=== PATIENT | female | born 1965 | race Caucasian/White ===

== ENCOUNTER → 2016-03-15 | Outpatient (CLI) | payer BC | END | disposition home or self-care (01) | LOC: MMGSC 15:09 | PROVIDERS: ATTEND Family Medicine | DX: N39.0 Urinary tract infection, site not specified (principal) | CPT/HCPCS: 87077; 87086; 87186 ==

== ENCOUNTER → 2016-03-28 | Outpatient (CLI) | payer BC ==
--- NOTE | 2016-03-28 11:07 | MM ---
Reason for exam: follow-up at short interval from prior study. Last mammogram was performed 6 months ago. Physical Findings: Nurse did not find any significant physical abnormalities on exam. MG 3D Diag Mammo W/Cad RT CC and MLO view(s) were taken of the right breast. Prior study comparison: October 01, 2015, mammogram, performed at [facility]. September 23, 2015, mammogram, performed at [facility]. September 10, 2012, mammogram, performed at [facility]. The breast tissue is heterogeneously dense. This may lower the sensitivity of mammography. There is no discrete abnormality including right MLO. No significant new findings when compared with previous films. These results were verbally communicated with the patient and result sheet given to the patient on 03/28/16. ASSESSMENT: Benign, BI-RAD 2 RECOMMENDATION: Routine screening mammogram of both breasts in 6 months. Back on schedule for September 2016.
== END | disposition home or self-care (01) ==
LOC: RADMAMWWP 10:17
PROVIDERS: ATTEND Family Medicine
DX: R92.8 Other abnormal and inconclusive findings on diagnostic imaging of breast (principal)
CPT/HCPCS: G0206; G0279

== ENCOUNTER → 2016-11-07 | Outpatient (CLI) | payer BC ==
[2016-11-07 19:45] LABS: Basophils % (A) 0 %; CH 31.3; CHCM 33.1; Eosinophils # (A) 0.2 k/uL (0-0.7); Eosinophils % (A) 4 %; HCT 41.1 % (34.0-46.0); HDW 2.34; HGB 13.2 gm/dL (11.4-16.0); Luc # (Auto) 0.07; Luc % (Auto) 1; Lymphocytes % (A) 20 %; MCH 30.4 pg (25.0-35.0); MCV 94.9 fL (80.0-100.0); Mean Platelet Volume 8.5; Monocytes # (A) 0.2 k/uL (0-1.0); Monocytes % (A) 5 %; Neutrophils # (A) 3.5 k/uL (1.3-7.7); Neutrophils % (A) 70 %; RBC 4.33 m/uL (3.80-5.40); RDW 14.3 % (11.5-15.5); WBC (Perox) 5.34
[2016-11-07 19:55] LABS: ALT 31 U/L (9-52); AST 16 U/L (14-36); Alkaline Phosphatase 55 U/L (38-126); Anion Gap 8 mmol/L; Blood Urea Nitrogen 12 mg/dL (7-17); Calcium 8.9 mg/dL (8.4-10.2); Carbon Dioxide 22 mmol/L (22-30); Chloride 110 mmol/L (98-107); Cholesterol 214 mg/dL (<200); Glucose 83 mg/dL (74-99); HDL Cholesterol 73 mg/dL (40-60); Non-African American GFR(MDRD) >60 (>60 ml/min/1.73 sqM); Potassium 4.5 mmol/L (3.5-5.1); Sodium 140 mmol/L (137-145); Total Bilirubin 0.7 mg/dL (0.2-1.3); Total Protein 6.7 g/dL (6.3-8.2)
== END ==
LOC: MMGSC 10:25
PROVIDERS: ATTEND Family Medicine
DX: Z00.00 Encounter for general adult medical examination without abnormal findings (principal)
CPT/HCPCS: 36415; 80053; 80061; 84439; 84443; 85025

== ENCOUNTER 2016-11-22 10:58 | Day surgery (SDC) | payer BC ==
[2016-11-18 15:46] VITALS: BMI 29.0
[~2016-11-22 10:58] MED LIST: LACTATED RINGERS 1,000 ML IV SCH
[2016-11-22] MEDS ORDERED: LIDOCAINE 1% 20 ML VIAL (10MG/ML) FOR IV START INTRADERMA ONE (11:10)
[2016-11-22] MEDS ORDERED: LACTATED RINGERS 1,000 ML IV ONE (11:10)
[2016-11-22] MEDS ORDERED: GLYCOPYRROLATE 0.2 MG/ML 2 ML VIAL ONE (12:15)
[2016-11-22] MEDS ORDERED: PROPOFOL 10 MG/ML 20 ML VIAL IV ONE (12:15)
[2016-11-22] MEDS ORDERED: LIDOCAINE 1% INJ 10MG/ML (20 ML MDV) ONE (12:15)
--- NOTE | 2016-11-22 12:43 | P.PCN ---
Date of Procedure: 11/22/16 Preoperative Diagnosis: Postoperative Diagnosis: Procedure(s) Performed: Procedure: Total colonoscopy. Preoperative diagnosis: Screening for neoplasia. Postoperative diagnosis: Exam within normal limits. Preparation: HalfLytely prep. Sedation: Was provided by anesthesia. Brief clinical history: The patient is a 51-year-old female who is referred for this evaluation for screening for neoplasia age being her risk factor. She has no abdominal complaints, bleeding or anemia. No family history of colon cancer. This would be her first colonoscopy. Procedure: With the patient on her left lateral decubitus position and after informed consent and adequate sedation, the perianal area was inspected and it did not show any fissures or fistulas. There were no masses felt on digital rectal examination. The Olympus CFQ 160L video colonoscope was then inserted in the rectum in the usual fashion and advanced to the cecum. The mucosa appeared healthy. No polyps or tumors were seen or any obvious diverticular disease or other pathology. I retroflexed endoscope in the rectum before the endoscope was withdrawn. The patient tolerated the procedure well. Plan: The patient was reassured. She will follow-up with you as planned and I recommended repeat exam in 10 years. Implants: Indications for Procedure: Operative Findings: Description of Procedure:
[2016-11-22 14:11] VITALS: BP 105/66; PULSE 83; RESP 16; TEMP 98.4
== END 2016-11-22 13:35 | disposition home or self-care (01) ==
LOC: ORWHC2ENDO 10:58
DX: Z12.11 Encounter for screening for malignant neoplasm of colon (principal); Z79.1 Long term (current) use of non-steroidal anti-inflammatories (NSAID); Z79.899 Other long term (current) drug therapy; Z98.51 Tubal ligation status
CPT/HCPCS: J2001; J2704; G0121

== ENCOUNTER → 2017-01-17 | Outpatient (CLI) | payer BC ==
--- NOTE | 2017-01-17 13:22 | MM ---
Reason for exam: additional evaluation requested from abnormal screening. Last mammogram was performed less than 1 month ago. History: Patient had first child at age 32. Physical Findings: Nurse Summary: A 1cm nodule in the left breast at 11 o'clock (nurse suzie). MG 3D Work Up W/Cad LT LM, spot compression MLO, CC with magnification, and LM with magnification view(s) were taken of the left breast. Prior study comparison: January 11, 2017, bilateral MG 3d screening mammo w/cad. March 28, 2016, right breast MG 3d diag mammo w/cad RT. October 01, 2015, mammogram, performed at [facility]. The breast tissue is heterogeneously dense. This may lower the sensitivity of mammography. Group of suspicious pleomorphic calcifications upper inner quadrant at a middle depth. Overlying palpable marker. There may be some associated focal asymmetry for which a ultrasound is recommended. The questioned posterior asymmetric density on the MLO view does not persist. These results were verbally communicated with the patient and result sheet given to the patient on 01/17/17. ASSESSMENT: Incomplete: need additional imaging evaluation, BI-RAD 0 RECOMMENDATION: Ultrasound of the left breast.
--- NOTE | 2017-01-18 07:49 | USB ---
Reason for exam: additional evaluation requested from abnormal screening. History: Patient had first child at age 32. US Breast Workup LT Left breast ultrasound includes all four quadrants, the retroareolar region and axilla. Finding demonstrates a 1.2 x 0.6 x 1.2cm oval, mixed lesion at 12 o'clock, primarily solid, less suspicious but should still be sampled, a 0.8 x 0.8 x 1.7cm irregular taller than wide, hypoechoic and shadowing lesion at 10 o'clock for which a biopsy is recommended (at the palpable site) while no calcifications are seen, this likely corresponds to the suspicious calcifications on the mammogram and a 0.4 x 0.3 x 0.2cm oval, too small to characterize lesion at 3 o'clock. No suspicious axillary lymph nodes seen. These results were verbally communicated with the patient and result sheet given to the patient on 01/17/17. ASSESSMENT: Highly suggestive of malignancy, BI-RAD 5 RECOMMENDATION: Surgical consultation and ultrasound core biopsy of the left breast. (2 sites) Called Dr. Christianson with mammographic findings and has scheduled an appointment for the patient for 01/31/17 at 2:[address] Chandler. Biopsy scheduled 01/26/17 at 9:00. PRELIMINARY REPORT CALLED AND FAXED TO DR. CHANDLER ON 01/18/17.
== END | disposition home or self-care (01) ==
LOC: RADMAMWWP 08:08
PROVIDERS: ATTEND Family Medicine
DX: R92.8 Other abnormal and inconclusive findings on diagnostic imaging of breast (principal)
CPT/HCPCS: 76641; G0206; G0279

== ENCOUNTER → 2017-01-26 | Day surgery (SDC) | payer BC ==
[2017-01-26 08:27] VITALS: RESP 16; BMI 27.6
--- NOTE | 2017-01-26 12:07 | USB ---
EXAMINATION TYPE: US biopsy breast add'l VAD LT, US biopsy breast VAD LT, MG diagnostic mammo LT wo CAD DATE OF EXAM: 01/26/2017 CLINICAL HISTORY: R92.8 ABNORMAL MAMMOGRAM. TECHNIQUE: 2 site ultrasound-guided core needle biopsy of the left breast. COMPARISON: Exams dating back to outside imaging dated 09/23/2015. FINDINGS: The procedure of ultrasound guided core biopsy was explained to the patient. Benefits, alternatives, and risks were discussed. An informed consent was then obtained. Site A: The patient was placed in supine positioning for imaging and for the procedure. The overlying skin was prepped and draped in usual sterile fashion. Lidocaine without epinephrine (10 cc) was used as anesthetic into the skin and lidocaine with epinephrine (3 cc) was utilized to anesthetize the subcutaneous tissue up to irregular hypoechoic highly suspicious left breast mass measuring approximately 0.8 x 0.8 x 1.7 cm at the 10:00 position. Under ultrasound guidance, a 12-gauge vacuum assisted biopsy gun device was used to obtain 8 core samples. Following this, a ribbon-shaped biopsy marker was left in the mass. A radiograph was obtained of the specimen with no definitive calcifications. Postprocedural mammogram demonstrates migration of the ribbon biopsy clip due to a postprocedural hematoma. The biopsy marker is located approximately 7 mm anteriorly, 4 mm superiorly, and 9 mm laterally to the suspicious mass and segmental calcifications. Site B: The patient was placed in supine positioning for imaging and for the procedure. The overlying skin was prepped and draped in usual sterile fashion. Lidocaine without epinephrine (10 cc) was used as anesthetic into the skin and lidocaine with epinephrine (4 cc) was utilized to anesthetize the subcutaneous tissue up to the oval primarily solid 1.2 x 0.6 x 1.2 cm mass at the 12:00 position Under ultrasound guidance, a 12-gauge vacuum assisted biopsy gun device was used to obtain 5 core samples. Following this, a coil-shaped biopsy marker was left in the mass. The patient tolerated the procedure well without any immediate complication. The patient was kept in the radiology department for short stay after the procedure and then discharged home in stable condition. IMPRESSION: Successful, two site ultrasound-guided core needle biopsy of a highly suspicious (BI-RADS 5) irregular mass at the 10:00 position and indeterminant moderately suspicious oval solid mass at the 12:00 position. Please note migration of the ribbon biopsy marker of site a as detailed above due to a postprocedural hematoma if needle localization is requested. Pathology is pending. Discordant A. BREAST, LEFT, SITE A TEN O'CLOCK, CORE BIOPSY: FIBROCYSTIC CHANGES INCLUDING FIBROSIS AND SMALL CYSTS. LIMITED SAMPLE, SEE NOTE. B. BREAST, LEFT, SITE B TWELVE O'CLOCK, CORE BIOPSY: FIBROADENOMA. BACKGROUND FIBROCYSTIC CHANGES INCLUDING FIBROSIS, CYSTS AND APOCRINE METAPLASIA. Recommendation Repeat procedure Repeat ultrasound to visualize 10 o'clock lesion. Repeat biopsy if seen. Subsequently, stereotactic biopsy left breast calcifications recommended. (10 o' clock) MTDD
[2017-01-26 12:13] VITALS: BP 116/73; PULSE 72; TEMP 97.9
== END ==
LOC: RADUSWWP 07:57
PROVIDERS: ATTEND Surgery
DX: D24.2 Benign neoplasm of left breast (principal); N60.12 Diffuse cystic mastopathy of left breast; R92.8 Other abnormal and inconclusive findings on diagnostic imaging of breast; N60.82 Other benign mammary dysplasias of left breast; N64.89 Other specified disorders of breast
CPT/HCPCS: 19084; 76098; 88305

== ENCOUNTER → 2017-03-02 | Day surgery (SDC) | payer BC ==
[2017-03-02 14:03] VITALS: BP 108/72; PULSE 70; RESP 18; TEMP 97.6; BMI 27.7
--- NOTE | 2017-03-03 09:14 | MM ---
Stereotactic Mammotome core biopsy left breast. HISTORY: Highly suspicious left breast microcalcifications. The calcification in question within the left breast were targeted by the undersigned. Procedure was performed by the undersigned. Informed consent was obtained and all of the patients questions were answered. The standard sterile technique was utilized and appropriate local anesthesia was obtained with 1% licocaine. Mammotome probe was advanced and multiple core samples were obtained and sent to pathology for interpretation. 2 Microclip markers were deployed at the site of biopsy. Post procedural mammogram demonstrates appropriate deployment of radiopaque clip marker. The patient tolerated the procedure well and left the department in stable condition. Pathology results are pending. IMPRESSION: Successful stereotactic core biopsy left breast with pathology results pending. Pathology Results: Malignant BREAST, LEFT, CORE BIOPSY: INVASIVE DUCTAL CARCINOMA AND HIGH GRADE DUCTAL CARCINOMA IN SITU (DCIS). SEE SURGICAL PATHOLOGY CANCER CASE SUMMARY AND COMMENT. Recommendation Appropriate therapy and follow up. NITESHD
== END ==
LOC: RADMAMWWP 13:13
PROVIDERS: ATTEND Surgery
DX: C50.912 Malignant neoplasm of unspecified site of left female breast (principal)
CPT/HCPCS: 88305; 88342; 88341; 19081; A4648; J2001

== ENCOUNTER → 2017-04-07 | Outpatient (CLI) | payer BC ==
--- NOTE | 2017-04-11 08:58 | BMR ---
EXAMINATION TYPE: MR breast BILAT wo/w con DATE OF EXAM: 04/07/2017 COMPARISON: Exams dating back to 01/26/2017 HISTORY: left breast palpable mass biopsy proven invasive ductal carcinoma of the left breast. TECHNIQUE: A series of fat and water weighted images in the long and short axis views of both breasts are obtained in conjunction with dynamic contrast MRI with subtraction technique. The patient was i njected with 7.5 mL intravenous Gadavist gadolinium contrast. Three-dimensional and additional post processing imaging is created on independent workstation and reviewed during official interpretation of this study. FINDINGS: The breasts are composed of heterogenous fibroglandular tissue and there is mild background parenchym al enhancement. LEFT: Susceptibility artifact is seen at the 12:00 position related to the biopsy-proven fibroadenoma, conc ordant with imaging findings. The mass is obscured by susceptibility artifact and demonstrates type I continuous enhancement. Susceptibility artifact is also seen at the 10:00 position relating to the discordant BI-RADS 5 highl y suspicious biopsied mass measuring 0.8 x 0.8 x 1.7 cm on the biopsy of 01/26/2017. There is a focal area of linear nonmass enhancement measuring 0.6 x 1.3 cm in association with this biopsy marker dem onstrating type II plateau kinetics. Susceptibility artifact is also seen adjacent (just inferior rosa roximately 2 mm) to this relating to the previously biopsied pleomorphic calcifications, biopsy prove n invasive ductal carcinoma. There is partially obscured linear nonmass enhancement measuring 1.4 x 1 .0 cm with type II plateau kinetics. At the 6:00 position on postcontrast T1 fat sat series 701 image 194 and subtraction image 194 on ser ies 702 there is a suspicious 5 mm focus of enhancement with washout kinetics. Within the lower outer quadrant of the left breast there are few subcentimeter T2 hyperintense cysts the largest measuring 5 mm. RIGHT: No suspicious mass are nonmass enhancement is seen within the right breast. ADENOPATHY: No suspicious axillary, internal mammary, or intramammary adenopathy is seen. IMPRESSION: BI-RADS 6-[id number] left breast malignancy. 1. Two areas of linear nonmass enhancement directly adjacent to each other (2 mm apart) at the 10:00 position corresponding to the discordant BI-RADS 5 highly suspicious biopsied mass and the pleomorphi c calcification representing biopsy-proven invasive ductal carcinoma. These measure 0.6 x 1.3 cm and 1.4 x 1.0 cm respectively. 2. Suspicious 5 mm focus of enhancement at the 6:00 position demonstrating type III kinetics/washout enhancement. Second look ultrasound with biopsy is recommended for this focus to determine multicentr icity. If not seen sonographically MR guided biopsy is recommended. 3. No suspicious axillary, internal mammary, or intramammary adenopathy. 4. No MR evidence of malignancy within the right breast.
== END | disposition home or self-care (01) ==
LOC: RADMRIMAIN 19:25
PROVIDERS: ATTEND Surgery
DX: C50.912 Malignant neoplasm of unspecified site of left female breast (principal)
CPT/HCPCS: 77059; 0159T; A9581

== ENCOUNTER → 2017-04-11 | Outpatient (CLI) | payer BC ==
--- NOTE | 2017-04-12 07:09 | USB ---
Reason for exam: additional evaluation requested from abnormal screening. History: Patient has history of breast cancer at age 51 and had first child at age 32. Malignant MG stereo VAD BX LT of the left breast, March 02, 2017. US discontinued breast core LT of the left breast, February 20, 2017. Benign US biopsy breast VAD LT of the left breast, January 26, 2017. Benign US biopsy breast add'l VAD LT of the left breast, January 26, 2017. Physical Findings: Nurse did not find any significant physical abnormalities on exam. US Breast LT Left breast ultrasound includes all four quadrants, the retroareolar region and axilla. Finding demonstrates a 1.4 x 0.6 x 1.1cm oval, solid lesion at 12 o'clock, known fibroadenoma and a 1.2 x 0.9 x 1.2cm irregular, solid, hypoechoic lesion at 10 o'clock, known cancer. No suspicious sonographic finding at the 6 o'clock position to correspond with the suspicious enhancing focus on MR. These results were verbally communicated with the patient and result sheet given to the patient on 04/11/17. ASSESSMENT: Known biopsy proven malignancy, BI-RAD 6 RECOMMENDATION: MRI-guided biopsy of the left breast. MR guided biopsy recommended on the 5mm enhancing focus on MR. Discussed with patient and Dr. Chandler.
== END | disposition home or self-care (01) ==
LOC: RADUSWWP 14:55
PROVIDERS: ATTEND Surgery
DX: C50.212 Malignant neoplasm of upper-inner quadrant of left female breast (principal)

== ENCOUNTER → 2017-04-27 | Day surgery (SDC) | payer BC ==
[~2017-04-27] MED LIST changes: +ALPRAZolam 0.5 MG TAB PO STA; -LACTATED RINGERS 1,000 ML IV SCH
[2017-04-27 09:00] VITALS: BP 117/71; PULSE 85; RESP 16; TEMP 98.3
--- NOTE | 2017-04-27 12:30 | MM ---
Diagnostic left mammogram HISTORY: Status post breast biopsy Digital left mammogram was performed following MRI breast biopsy. Exam correlated to prior exam dated 03/02/2017 There is a new barbell-shaped clip present at the approximate 6:00 position of the left breast compat ible with patient's breast biopsy. Prior markers are also again noted. Abnormal calcifications compat ible with patient's history of breast carcinoma also noted. IMPRESSION: Post MRI biopsy exam.
--- NOTE | 2017-04-27 13:14 | BMR ---
MR breast biopsy HISTORY: Abnormal mammogram, breast cancer, previous abnormal breast MRI Correlation to prior breast MRI dated 04/07/2017 Maximal barrier technique was utilized. Using MRI guidance, the area previously described of abnormal contrast enhancement, kinetics at the 6:00 position of the right breast was localized. Using standar d MRI guidance the skin overlying a suitable path to the abnormality was identified and subsequently prepped. Lidocaine was used for local anesthesia. Trocar was introduced with sheath and subsequently vacuum assisted core biopsy was performed, 5 cores obtained. A clip was deployed was verified and pos tprocedure digital mammogram and MRI on same date. Sheath was removed and hemostasis achieved. The pa tient remained in stable condition without immediate complication. Minimal bleeding. IMPRESSION: Successful MRI guided core breast biopsy, pathology pending. This procedure performed by the undersigned.
== END ==
LOC: RADMRIMAIN 08:38
PROVIDERS: ATTEND Surgery
DX: N60.32 Fibrosclerosis of left breast (principal); Z85.3 Personal history of malignant neoplasm of breast
CPT/HCPCS: 88305; 77065; 19085; A9581; 0159T

== ENCOUNTER → 2017-05-09 | Day surgery (SDC) | payer BC ==
[2017-05-05 12:24] VITALS: BMI 28.2
[~2017-05-09] MED LIST changes: +ALPRAZolam 0.5 MG TAB PO PRN; -ALPRAZolam 0.5 MG TAB PO STA; +DEXAMETHASONE SOD PHOSPHATE 10 MG/ML 1 ML VIAL IV ONE; +HEPARIN SODIUM,PORCINE 5,000 UNIT/ML 1 ML VIAL SQ ONE; +HYDROcodone/APAP 5-325MG 1 EACH TAB PO ONE; +HYDROmorphone (PF) 1 MG/ML ONE; +HYDROmorphone 0.5 MG/0.5 ML SYRINGE IVP ONE; +LACTATED RINGERS 1,000 ML IV ONE; +LACTATED RINGERS 1,000 ML IV SCH; +LIDOCAINE 1% 20 ML VIAL (10MG/ML) FOR IV START INTRADERMA ONE; +LIDOCAINE 1% INJ 10MG/ML (20 ML MDV) ONE; +LIDOCAINE 1% INJ 10MG/ML (20 ML MDV) SQ ONE; +LIDOCAINE 2% (PF) 20 MG/ML 10 ML AMP SQ ONE; +MIDAZOLAM 2 MG/2 ML VIAL ONE; +MORPHINE SULFATE 2 MG/ML SYRINGE IV PRN; +ONDANSETRON 4 MG/2 ML VIAL IVP ONE; +PROPOFOL 10 MG/ML 20 ML VIAL IV ONE; +Pre Op ABX Message 1 EACH MISC MISCELLANE ONE; +SODIUM BICARB 4% 5 ML VIAL (0.48 MEQ/ML) MISCELLANE ONE; +SODIUM CHLORIDE 0.9% 50 ML with ceFAZolin 2,000 MG IV ONE; +fentaNYL (PF) 50 MCG/ML 2 ML AMP IV PRN; +fentaNYL (PF) 50 MCG/ML 2 ML AMP ONE
[2017-05-09] MEDS: ONDANSETRON 4 MG/2 ML VIAL IVP PRN ×2 (12:30→19:30)
--- NOTE | 2017-05-09 12:40 | NM ---
EXAMINATION TYPE: NM sentinel node injection DATE OF EXAM: 05/09/2017 COMPARISON: Exams dating back to 01/26/2017 HISTORY: Left breast cancer with request for sentinel lymph node biopsy TECHNIQUE AND FINDINGS: The procedure of sentinel lymph node injection was explained to the patient. The benefits, alternatives, and risks were discussed. An informed consent was then obtained. Overlying skin is cleaned with sterile alcohol. Following this, 589 uCi [id number] lymphoseek was injecte d in a single dose at the 2:00 position surrounding the left nipple intradermally. The patient tolerated the procedure well without any immediate complication. The patient was kept in the radiology department for short stay after the procedure and then taken to surgery for surgical p rocedure what is presumed intraoperative gamma probe will be used for sentinel lymph node detection. IMPRESSION: Left breast radiotracer injection for sentinel node localization as above.
--- NOTE | 2017-05-09 18:46 | P.PCN ---
Date of Procedure: 05/09/17 Preoperative Diagnosis: left breast cancer Postoperative Diagnosis: same Procedure(s) Performed: Left breast sentinel node biopsy, lumpectomy, placement of Biozorb, interrogation of specimen using margin probe Anesthesia: MACHO Surgeon: Kelly Turpin Estimated Blood Loss (ml): 10 IV fluids (ml): 650 Pathology: other (sentinal node, left breast lumpectomy) Condition: stable Disposition: PACU Indications for Procedure: left breast cancer Operative Findings: radiographic areas of concern removed Description of Procedure: The patient is a 51-year-old white female who is noted to have two radiographic lesions at approximately the 10 o'clock position. One was noted on ultrasound and ultrasound-guided biopsy was felt to be discordant. The second was noted on mammogram and stereotactic biopsy revealed infiltrating ductal carcinoma. Secondary to proximety of the lesions both were localized with one needle and both to be removed at this surgery. Patient was taken to the operating room and following induction of general anesthesia the left breast was prepped and draped in a sterile fashion. The neoprobe was used to identify the area of increased radioactivity in the axilla. An incision was made over this area and into in a radioactive lymph node was identified. The 10 second count of the radioactive lymph node was 34, 344. The background count at 10 seconds was 29. The lymph node was sent for pathologic evaluation and frozen section was negative for cancer. The axilla was well irrigated. There was no evidence of any active bleeding. 3-0 vicryl deep sutures were placed. The skin was closed using a 4-0 Monocryl. The area of the breast was addressed. An incision was made near the area of the needle. Wide excision was performed around the needle. Radiograph of the specimen revealed that both clips and area of calcification were in the specimen. The specimen was sent down for evaluation after it been painted for orientation. Additionally it was interrogated using the margin probe. Margin probe interrogation revealed that the inferior, superior, anterior and deep margins were positive. Therefore additional tissue was taken from the superior , inferior, deep and anterior breast. The posterior dissection was carried down to the pectoralis major muscle. The anterior dissection included resection of skin. Specimens were painted to identify the margins. Additionally on radiograph of the specimen the calcifications appeared to be close to the superior margin and additional superior margin was obtained. After we were assured that hemostasis was attained the deep tissues were closed using 3-0 Vicryl suture. A Biozorb sizer was utilized to determine what size biozorb should be placed in the cavity. A 3 x 4 was chosen and this was secured using a 3-0 Vicryl suture. The deep tissues were reapproximated using 3 -0 Vicryl suture. The skin was reapproximated using a 4-0 Monocryl. All instrument and sponge counts were correct at the end of the case. The patient tolerated the procedure in stable condition.
--- NOTE | 2017-05-09 18:48 | P.DS ---
Providers Attending physician: Kelly Turpin Primary care physician: Nemo Christianson Plan - Discharge Summary New Discharge Prescriptions: No Action Acetaminophen [Tylenol] 650 mg PO Q4-6H PRN PRN Reason: Pain Discharge Medication List Acetaminophen [Tylenol] 650 mg PO Q4-6H PRN 04/27/17 [History] Follow up Appointment(s)/Referral(s): Kelly Turpin MD [STAFF PHYSICIAN] - 1 Week Activity/Diet/Wound Care/Special Instructions: Patient may shower after [address] or if taking narcotic pain medication Discharge Disposition: HOME SELF-CARE
[2017-05-09 19:10] VITALS: RESP 16; TEMP 97.7
[2017-05-09 20:12] VITALS: BP 116/64; PULSE 89
--- NOTE | 2017-05-10 07:46 | MM ---
EXAMINATION TYPE: MG pre op needle loc LT, MG surgical specimen LT, MG surgical specimen LT DATE OF EXAM: 05/09/2017 COMPARISON: Exams dating back to 01/09/2017 CLINICAL HISTORY: Left breast invasive ductal carcinoma and high-grade DCIS TECHNIQUE: Needle localization with wire placement and surgical excision of pleomorphic calcifications biopsy-proven invasive ductal carcinoma and DCIS in the left breast. FINDINGS: The procedure of needle localization with wire placement and than surgical excision was explained to the patient. Benefits, alternatives, and risks were discussed. An informed consent was then obtained. Preprocedural timeout was performed. The shortest pathway for procedure was chosen. Shortest pathway was medial lateral approach. The overlying skin was prepped and draped in usual sterile fashion. 10 cc of lidocaine buffered with bicarbonate was used as anesthetic into the skin and subcutaneous tissue up to the level of area of concern. A 5 cm needle was used. It was placed via a lateral medial approach under mammographic guidance. Subsequent 90 degrees mammogram show the needle to be in satisfactory position relative to the targeted area with the needle just posterior to the calcifications and biopsy marker. At this point, wire was placed and the needle was withdrawn. The wire was fixed to patient's skin. Images were marked for surgeon. The patient tolerated the procedure well without any immediate complication. The patient was kept in the radiology department for short stay after the procedure and then taken to surgery for surgical excision. Targeted calcifications and wire are identified in specimen mammogram. The patient was kept in hospital for short stay after the procedure and then discharged home in stable condition. IMPRESSION: Successful, uncomplicated needle localization with wire placement and surgical excision of suspicious group of calcifications representing the biopsy-proven left invasive ductal carcinoma and high-grade DCIS, full pathology results to follow. Pathology Results: Malignant A. LEFT BREAST SENTINEL LYMPH NODE, EXCISION: LYMPH NODE, NEGATIVE FOR METASTATIC ADENOCARCINOMA. LEILA AND CK7 IMMUNOPEROXIDASE STAINS: NEGATIVE FOR METASTATIC ADENOCARCINOMA. CONTROLS ARE APPROPRIATE FOR IMMUNOSTAIN EVALUATION. B. LEFT BREAST, LUMPECTOMY TISSUE: DUCTAL ADENOCARCINOMA, IGNACIO GRADE 1. TUMOR EXTENDS TO WITHIN 1 MM OF THE BLACK INKED SUPERIOR MARGIN. C. LEFT BREAST, EXTENDED SUPERIOR MARGIN, EXCISION: NEGATIVE FOR INVOLVEMENT BY ADENOCARCINOMA. PROLIFERATIVE BREAST LESIONS WITHOUT ATYPIA INCLUDING FIBROADENOMA, SCLEROSING ADENOSIS AND DUCT CYSTIC CHANGES WITH STROMAL FIBROSIS. D. LEFT BREAST, EXTENDED INFERIOR MARGIN, EXCISION: NEGATIVE FOR INVOLVEMENT BY ADENOCARCINOMA. E. LEFT BREAST, EXTENDED DEEP MARGIN, EXCISION: NEGATIVE FOR INVOLVEMENT BY ADENOCARCINOMA. F. LEFT BREAST, EXTENDED ANTERIOR MARGIN WITH SKIN, EXCISION: NEGATIVE FOR INVOLVEMENT BY ADENOCARCINOMA OR DERMAL LYMPH VASCULAR SPACE INVASION. Recommendation Surgical consult of the left breast. NITESHD
== END | disposition home or self-care (01) ==
LOC: OR 10:31
PROVIDERS: ATTEND Surgery
DX: D24.2 Benign neoplasm of left breast (principal); N60.22 Fibroadenosis of left breast; N60.32 Fibrosclerosis of left breast; N60.12 Diffuse cystic mastopathy of left breast; Z79.899 Other long term (current) drug therapy
CPT/HCPCS: 81025; 88342; 88331; 88307; 88341; 76098; 19281; 38792; A4648; A9520; J2250; J1644; J1100; J2001 ×2; J2405; J3010; J1170 ×2; J0690; J2704

== ENCOUNTER → 2017-09-28 | Outpatient (CLI) | payer BC ==
[2017-09-28 09:58] VITALS: BP 125/60; PULSE 71; BMI 29.9
--- NOTE | 2017-09-28 10:29 | P.GSHP ---
History of Present Illness H&P Date: 09/28/17 Patient is a 52 year old white female status post lumpectomy and SNB on . D2iYtIl lesion, Grade 1, ER, positive, GA, positive, HER-2/doris negative Oncotype test was done and told low score. The patient is on tamoxifen. She did not have any chemotherapy. She did have radiation therapy. The patient has no complaints at this time. past surgical history: 1. left breast lumpectomy and sentinel node biopsy to 04-19-17 2. 2 3. Tubal ligation 4. Pyloric stenosis as an 5. Appendectomy Past medical history: None - Constitutional Comment: Night sweats related to tamoxifen Constitutional: Reports sweats - EENT Eyes: denies blurred vision (new glasses), denies pain Ears: deny: decreased hearing, tinnitus Ears, nose, mouth and throat: Denies headache, Denies sore throat - Breasts Breasts: bilateral: as per HPI - Cardiovascular Cardiovascular: Denies chest pain, Denies shortness of breath - Respiratory Respiratory: Denies cough, Denies 7 - Gastrointestinal Gastrointestinal: Denies abdominal pain, Denies diarrhea, Denies nausea, Denies vomiting - Genitourinary (Female) Genitourinary: Denies dysuria, Denies hematuria - Menstruation Comment: still having periods on tamoxifen - Musculoskeletal Comment: no arthritis Musculoskeletal: Denies myalgias - Integumentary Integumentary: Denies pruritus, Denies rash - Neurological Neurological: Denies numbness, Denies weakness - Psychiatric Psychiatric: Denies anxiety, Denies depression - Endocrine Endocrine: Denies fatigue, Denies weight change - Hematologic/Lymphatic Comment: none - Allergic/Immunologic Allergic/Immunologic: Reports seasonal allergies Past Medical History Past Medical History: Cancer Additional Past Medical History / Comment(s): left breast CA Dx Mar 2017 History of Any Multi-Drug Resistant Organisms: None Reported Past Surgical History: Appendectomy, Section, Tubal Ligation Additional Past Surgical History / Comment(s): left breast bx,C SECTION X2 , EYE SURGERY, PYLORIC STENOSIS SURGERY Past Anesthesia/Blood Transfusion Reactions: No Reported Reaction Additional Past Anesthesia/Blood Transfusion Reaction / Comment(s): no hx blood transfusions Past Psychological History: No Psychological Hx Reported Smoking Status: Never smoker Past Alcohol Use History: Occasional Past Drug Use History: None Reported - Past Family History Mother History Unknown: Yes Family Medical History: No Reported History Additional Family Medical History / Comment(s): no cancer in immediate family Medications and Allergies Home Medications Medication Instructions Recorded Confirmed Type Acetaminophen [Tylenol] 650 mg PO Q4-6H PRN 04/27/17 09/28/17 History Tamoxifen Citrate 20 tab PO DAILY 09/28/17 09/28/17 History Vitamin E 1,000 unit PO DAILY 09/28/17 09/28/17 History Allergies Allergy/AdvReac Type Severity Reaction Status Date / Time No Known Allergies Allergy Verified 05/05/17 12:18 Surgical - Exam Vital Signs Pulse BP Pulse Ox 71 125/60 98 09/28/17 09:53 09/28/17 09:53 09/28/17 09:53 - General well developed, well nourished, no distress - Eyes normal ocular movement, no icteric - ENT no hearing loss, no congestion - Neck no masses, trachea midline - Respiratory normal respiratory effort, clear to auscultation - Cardiovascular Rhythm: regular Heart Sounds: normal: S1, S2 - Abdomen Abdomen: soft, non tender, no guarding, no rigid, no rebound - Integumentary Mild skin changes related to prior radiation therapy of the left breast - Neurologic no disoriented, no combative - Musculoskeletal normal gait, normal posture - Psychiatric oriented to time, oriented to person, oriented to place, speech is normal, memory intact Breast examination: Right breast: Multiple positional exam no dominant masses or nodules of concern Right axilla: Mild shotty adenopathy non-concerning Left breast: Multiple positional exam well-healed scar from prior lumpectomy postop changes no masses of concern Left axilla: Well-healed scar no adenopathy of concern Bilateral upper extremity circumference 31 cm no evidence of lymphedema Assessment and Plan Assessment: Impression/plan: 1. Patient is status post lumpectomy radiation therapy for a T1 cN0 M0 left breast cancer this was ER/GA positive HER-2/doris negative and low Oncotype score grade 1 2. No evidence of recurrent disease Plan: Repeat physician exam in 4 months time patient will call if she has any questions or concerns sooner Cc: Dr. Swift
== END ==
LOC: WWCWWP 09:48
PROVIDERS: ATTEND Surgery
DX: Z53.9 Procedure and treatment not carried out, unspecified reason (principal)

== ENCOUNTER → 2018-01-05 | Outpatient (CLI) | payer BC ==
[2018-01-05 19:39] LABS: Albumin 4.1 g/dL (3.80-4.90); Albumin/Globulin Ratio 1.78 (1.20-2.10); Anion Gap 9.9 mmol/L (4.00-12.00); Calcium 8.9 mg/dL (8.7-10.3); Carbon Dioxide 22.1 mmol/L (21.6-31.8); Globulin 2.3 g/dL (2.1-3.7); LDL Cholesterol,Calculated 98.6 mg/dL (0.0-131.0); Potassium 4.4 mmol/L (3.5-5.5); Total Bilirubin 0.8 mg/dL (0.2-1.2); Total Protein 6.4 g/dL (6.2-8.2); VLDL Calculation 19.4 mg/dL (5.00-40.00)
== END ==
LOC: LABWHC1 08:55
PROVIDERS: ATTEND Family Medicine
DX: Z00.00 Encounter for general adult medical examination without abnormal findings (principal)
CPT/HCPCS: 36415; 80053; 80061

== ENCOUNTER → 2018-01-25 | Outpatient (CLI) | payer BC ==
[2018-01-25 15:51] VITALS: BP 128/78; PULSE 91; RESP 18; TEMP 98.2; BMI 29.8
--- NOTE | 2018-01-25 15:59 | P.PN ---
Subjective Progress Note Date: 01/25/18 Principal diagnosis: Anali is a 52-year-old white female status post lumpectomy and sentinel node biopsy and [id number]. A T1 cN0 M0 lesion, grade 1, ER positive, [place] positive, HER -2/doris negative, lesion was resected. Oncotype was done in she was told this had a low score. She is on tamoxifen. She did have radiation therapy. She did not have chemotherapy. She has no complaints at this time. Patient with no new lumps in her breast or concerns. Yareli had a bilateral mammogram performed [id number]. This is shows only postsurgical changes in the left breast. No lesions of concern noted in the right breast. The plan is bilateral mammogram in 1 year. Past surgical history: 1. Left breast lumpectomy sentinel node biopsy 2. 2 3. Tubal ligation 4. Pyloric stenosis 5. Appendectomy Past medical history:none Objective - Constitutional General appearance: Present: average body habitus - EENT Eyes: Present: EOMI ENT: Present: hearing grossly normal - Neck Neck: Present: normal ROM - Respiratory Respiratory: bilateral: CTA - Cardiovascular Rhythm: regular Heart sounds: normal: S1, S2 - Gastrointestinal General gastrointestinal: Present: soft - Integumentary Integumentary Comment(s): Breast examination: Right breast: Multi-positional exam no dominant masses or nodules of concern Right axilla: No adenopathy of concern Left breast: Postoperative changes noted dominant masses or nodules of concern, area of BioSorb remains palpable Left axilla: No adenopathy of concern - Musculoskeletal Musculoskeletal: Present: gait normal - Psychiatric Psychiatric: Present: A&O x's 3, appropriate affect, intact judgment & insight Assessment and Plan Assessment: Impression: 1. Patient status post left breast lumpectomy and sentinel node biopsy April 2017, patient does not have any evidence of recurrent cancer at this time 2. Fibrocystic breast changes in the right breast Plan: 1. Repeat bilateral mammogram in 1 year 2. Follow-up clinical breast exam in 4 months CC:
== END ==
LOC: WWCWWP 15:11
PROVIDERS: ATTEND Surgery
DX: Z53.9 Procedure and treatment not carried out, unspecified reason (principal)

== ENCOUNTER → 2018-06-01 | Outpatient (CLI) | payer BC ==
[2018-06-01 15:31] VITALS: BP 144/63; PULSE 90; RESP 16; TEMP 97.4; BMI 29.8
--- NOTE | 2018-06-01 15:56 | P.PN ---
Subjective Progress Note Date: 06/01/18 Principal diagnosis: Stage IA, pT1 cN0 M0 ER/LA positive HER-2/doris negative grade 1 Anali is a 52-year-old white female who is status post left breast lumpectomy with sentinel node biopsy and [id number]. 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 This was a grade 1. Margins were negative. One sentinel node was sampled which was negative. On to receive total breast radiation followed by a boost between 06/27/2017 and 07/24/2017. She tolerated the treatment with only mild dermatitis along the axillary inframammary fold. Anali had a bilateral mammogram performed on [id number]. This showed only postsurgical changes in the left breast. The patient is presently on tamoxifen. She has no complaints. The patient has noted a change in the skin of the left breast over the past 6 months. This will be evaluated today. Objective - Vital Signs Vital signs: Vital Signs Temp 97.4 F L 06/01/18 15:27 Pulse 90 06/01/18 15:27 Resp 16 06/01/18 15:27 BP 144/63 06/01/18 15:27 Pulse Ox 98 06/01/18 15:27 Intake & Output 05/31/18 06/01/18 06/01/18 18:59 06:59 18:59 Weight 83.915 kg - Exam BMI 29.9 - Constitutional General appearance: Present: average body habitus - EENT Eyes: Present: EOMI ENT: Present: hearing grossly normal - Neck Neck: Present: normal ROM - Respiratory Respiratory: bilateral: CTA - Cardiovascular Rhythm: regular Heart sounds: normal: S1, S2 - Gastrointestinal General gastrointestinal: Present: soft - Integumentary Integumentary: Present: normal turgor - Musculoskeletal Musculoskeletal: Present: gait normal - Psychiatric Psychiatric: Present: A&O x's 3, appropriate affect, intact judgment & insight - Additional findings Additional findings: Breast examination: Right breast: Multi-positional exam fibrocystic changes no dominant masses or nodules of concern Right axilla: No adenopathy of concern Left breast: Multi-positional exam no dominant masses or nodules of concern Well-healed scar from prior lumpectomy Radiation skin changes noted but not worrisome Left axilla: No adenopathy of concern Assessment and Plan Assessment: Impression: 1. Patient status post left breast lumpectomy patient status post left breast radiation therapy patient presently on tamoxifen 2. No evidence of any recurrent cancer Plan: 1. Repeat physician exam here in 4 months time 2. Continue follow-up with medical and radiation oncology 3. Repeat bilateral mammogram in January 2019 Cc: Dr. Swift
== END ==
LOC: WWCWWP 15:20
PROVIDERS: ATTEND Surgery
DX: Z53.9 Procedure and treatment not carried out, unspecified reason (principal)

== ENCOUNTER → 2018-11-08 | Outpatient (CLI) | payer BC ==
[2018-11-08 14:04] VITALS: BP 110/67; PULSE 82; RESP 18; TEMP 98.3; BMI 29.9
--- NOTE | 2018-11-08 14:21 | P.PN ---
Subjective Progress Note Date: 11/08/18 Stage IA, pT1 cN0 M0 ER/OR positive HER-2/doris negative grade 1 Anali is a 52-year-old white female who is status post left breast lumpectomy with sentinel [place] biopsy [place] [id number]. 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 This was a grade 1. Margins were negative. One sentinel node was sampled which was negative. She received total breast radiation followed by a boost between 06/27/2017 and 07/24/2017. She tolerated the treatment with only mild dermatitis along the axillary inframammary fold. Anali had a bilateral mammogram performed on [id number]. This showed only post surgical changes in the left breast. The patient is presently on tamoxifen. She did not have chemotherapy. She has no complaints. Patient has no concerns at this time. Family History: no cancer other than patient Hormonal history: menarche: 12 , miscarrage: 1, breast fed: yes, first born at 33 menopause: Last period September 01 BCP: 5 years hormones: none Surgical history: 1. Left breast lumpectomy with sentinel node biopsy 2. Appendectomy 3. Stenosis 4. Injury to left eye 5. C-sections times two Medical history: none Social History: smoke: none alcohol: occasional drugs: none Review of systems: HEENT: His glasses Lungs: Negative Heart: Negative GI: Negative : Negative Musculoskeletal: Negative Neurologic: Negative Hematologic: Negative Skin: Negative ALLERGIES: Seasonal ALLERGIES Objective - Vital Signs Vital signs: Vital Signs Temp 98.3 F 11/08/18 14:01 Pulse 82 11/08/18 14:01 Resp 18 11/08/18 14:01 BP 110/67 11/08/18 14:01 Pulse Ox 97 11/08/18 14:01 Intake & Output 11/07/18 11/08/18 11/08/18 18:59 06:59 18:59 Weight 81.647 kg - Exam BMI 30 - Constitutional General appearance: Present: average body habitus - EENT Eyes: Present: EOMI ENT: Present: hearing grossly normal - Neck Neck: Present: normal ROM - Respiratory Respiratory: bilateral: CTA - Cardiovascular Rhythm: regular Heart sounds: normal: S1, S2 - Gastrointestinal General gastrointestinal: Present: soft - Integumentary Integumentary: Present: normal turgor - Musculoskeletal Musculoskeletal: Present: gait normal - Psychiatric Psychiatric: Present: A&O x's 3, appropriate affect, intact judgment & insight - Additional findings Additional findings: breast exam: Right breast: Multiple positional exam, cystic changes, no dominant masses or nodules of concern Right axilla: No adenopathy of concern Left breasts: Well-healed scar from prior lumpectomy, changes at the surgical site no discrete dominant masses or nodules of concern no evidence of recurrence Left axilla: No adenopathy of concern Assessment and Plan Assessment: Impression: 1. Status post left breast lumpectomy and sentinel node biopsy with postop changes no evidence of recurrent cancer 2. Patient on tamoxifen 3. Patient stopped. At this point in time. No complaints related to the tamoxifen otherwise 4. Asymmetry of the breast related to prior lumpectomy at this time patient is not interested in a contralateral breast symmetry procedure Plan: 1. Repeat bilateral mammogram in January with physician exam at that time 2. Medical management of any medical conditions CC: Dr. Swift
== END | disposition home or self-care (01) ==
LOC: WWCWWP 13:54
PROVIDERS: ATTEND Surgery
DX: Z53.9 Procedure and treatment not carried out, unspecified reason (principal)

== ENCOUNTER → 2019-01-28 | Outpatient (CLI) | payer BC ==
--- NOTE | 2019-01-29 08:45 | MM ---
Reason for exam: additional evaluation requested from prior study. Last mammogram was performed 1 year ago. History: Patient has history of breast cancer at age 51 and had first child at age 32. Radiation therapy, July 2017. Malignant MG pre op needle loc LT of the left breast, May 09, 2017. Lumpectomy of the left breast, May 09, 2017. Benign MR breast biopsy w/vad LEFT of the left breast, April 27, 2017. Malignant MG stereo VAD BX LT of the left breast, March 02, 2017. US discontinued breast core LT of the left breast, February 20, 2017. Benign US biopsy breast VAD LT of the left breast, January 26, 2017. Benign US biopsy breast add'l VAD LT of the left breast, January 26, 2017. Taking tamoxifen for 1 year. Physical Findings: Nurse did not find any significant physical abnormalities on exam. MG 3D Diag Mammo W/Cad ROB Bilateral CC and MLO view(s) were taken. Prior study comparison: January 22, 2018, bilateral MG 3d diag mammo w/cad ROB. April 27, 2017, left breast MG diagnostic mammo LT wo CAD. The breast tissue is heterogeneously dense. This may lower the sensitivity of mammography. Biozorb device in place on the left with post surgical and post therapy changes. 6 month follow up can assess for any evolving post therapy changes. No significant new findings when compared with previous films. These results were verbally communicated with the patient and result sheet given to the patient on 01/28/19. ASSESSMENT: Probably benign, BI-RAD 3 RECOMMENDATION: Follow-up diagnostic mammogram of the left breast in 6 months.
== END | disposition home or self-care (01) ==
LOC: RADMAMWWP 15:06
PROVIDERS: ATTEND Surgery
DX: Z08 Encounter for follow-up examination after completed treatment for malignant neoplasm (principal); Z85.3 Personal history of malignant neoplasm of breast
CPT/HCPCS: 77062; 77066

== ENCOUNTER → 2019-02-01 | Outpatient (CLI) | payer BC ==
[2019-02-01 15:24] VITALS: BMI 28.2
--- NOTE | 2019-02-01 15:55 | P.PN ---
Subjective Progress Note Date: 02/01/19 Principal diagnosis: Stage 1A left breast cancer, surveillance Stage IA, pT1 cN0 M0 ER/MI positive HER-2/doris negative grade 1 Anali is a 52-year-old white female who is status post left breast lumpectomy with sentinel node biopsy on . 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 This was a grade 1. Margins were negative. One sentinel node was sampled which was negative. She received total breast radiation followed by a boost between 06/27/2017 and 07/24/2017. She tolerated the treatment with only mild dermatitis along the axillary inframammary fold. Anali had a bilateral mammogram performed on 01-28-19. The breast tissue was noted to be heterogeneously dense. BioSorb device was in place on the left with postsurgical and post-therapy changes. 6 month follow-up recommended to assess for evolving posttherapy changes. This was felt to be probably benign BIRADS 3. Patient does not feel any changes for which she is concern in either breast. The patient is presently on tamoxifen. She did not have chemotherapy. She has no complaints. Patient has no concerns at this time. Family History: no cancer other than patient Hormonal history: menarche: 12 , miscarrage: 1, breast fed: yes, first born at 33 menopause: Last period September 01 BCP: 5 years hormones: none Surgical history: 1. Left breast lumpectomy with sentinel node biopsy 2. Appendectomy 3. pyloric stenosis 4. Injury to left eye 5. C-sections times two Medical history: none Social History: smoke: none alcohol: occasional drugs: none Review of systems: HEENT: wears glasses Lungs: Negative Heart: Negative GI: Negative : Negative Musculoskeletal: Negative Neurologic: Negative Hematologic: Negative Skin: Negative ALLERGIES: Seasonal ALLERGIES Objective - Vital Signs Vital signs: Intake & Output 01/31/19 02/01/19 02/01/19 18:59 06:59 18:59 Weight 79.379 kg - Exam BMI 28.2 - Constitutional General appearance: Present: average body habitus - EENT Eyes: Present: EOMI ENT: Present: hearing grossly normal - Neck Neck: Present: normal ROM - Respiratory Respiratory: bilateral: CTA - Cardiovascular Rhythm: regular Heart sounds: normal: S1, S2 - Gastrointestinal General gastrointestinal: Present: soft - Integumentary Integumentary: Present: normal turgor - Musculoskeletal Musculoskeletal: Present: gait normal - Psychiatric Psychiatric: Present: A&O x's 3, appropriate affect, intact judgment & insight - Additional findings Additional findings: breast exam: right breast: Positional exam fibrocystic changes, no dominant masses or nodules of concern Right axilla: No adenopathy of concern Left breast: Left breast is smaller than the right secondary to lumpectomy and radiation treatment, there are postradiation skin changes noted, well-healed scar from prior surgery, multiple positional exam no dominant masses or nodules of concern, however the BioSorb remains palpable in the upper 12 to 11 o'clock position. Left axilla: No adenopathy of concern Assessment and Plan Assessment: Impression: 1. Patient status post left breast lumpectomy, radiation therapy for stage IA left breast cancer Apr, 2017 2. Patient is on tamoxifen 3. Patient's recent radiographic recommends repeat left breast mammogram in 6 months Plan: 1. Patient is to call if she notices anything of concern 2. Repeat left breast mammogram and physician exam in 6 months 3. Continue tamoxifen 4. Continue to follow up with radiation and medical oncology Discussion of mammogram findings held with the patient. She will have a repeat in 6 months. No evidence of recurrent cancer on x ray or exam at this time. Encounter: 20 minutes, > 50% planning, discussion
== END ==
LOC: WWCWWP 14:26
PROVIDERS: ATTEND Surgery
DX: Z53.9 Procedure and treatment not carried out, unspecified reason (principal)

== ENCOUNTER → 2019-08-23 | Outpatient (CLI) | payer BC ==
--- NOTE | 2019-08-27 10:16 | MM ---
Reason for exam: follow-up at short interval from prior study. Last mammogram was performed 7 months ago. History: Patient has history of breast cancer at age 51 and had first child at age 32. Radiation therapy, July 2017. Malignant MG pre op needle loc LT of the left breast, May 09, 2017. Lumpectomy of the left breast, May 09, 2017. Benign MR breast biopsy w/vad LEFT of the left breast, April 27, 2017. Malignant MG stereo VAD BX LT of the left breast, March 02, 2017. US discontinued breast core LT of the left breast, February 20, 2017. Benign US biopsy breast VAD LT of the left breast, January 26, 2017. Benign US biopsy breast add'l VAD LT of the left breast, January 26, 2017. Taking tamoxifen for 1 year. Physical Findings: Nurse did not find any significant physical abnormalities on exam. MG 3D Diag Mammo W/Cad LT CC and MLO view(s) were taken of the left breast. Prior study comparison: January 28, 2019, bilateral MG 3d diag mammo w/cad ROB. January 22, 2018, bilateral MG 3d diag mammo w/cad ROB. The breast tissue is heterogeneously dense. This may lower the sensitivity of mammography. Previous mammotome biopsy in the left breast. Post surgical and post therapy changes left breast with biozorb device and distortion from scar. No new calcifications. Continued short follow up recommended. These results were verbally communicated with the patient and result sheet given to the patient on 08/23/19. ASSESSMENT: Probably benign, BI-RAD 3 RECOMMENDATION: Follow-up diagnostic mammogram of both breasts in 5 months. (right annual follow up, left continued post therapy follow up)
== END | disposition home or self-care (01) ==
LOC: RADMAMWWP 14:39
PROVIDERS: ATTEND Surgery
DX: R92.8 Other abnormal and inconclusive findings on diagnostic imaging of breast (principal)
CPT/HCPCS: 77061; 77065

== ENCOUNTER → 2019-08-29 | Outpatient (CLI) | payer BC ==
[2019-08-29 13:35] VITALS: BP 120/71; PULSE 99; RESP 18; TEMP 98.7
--- NOTE | 2019-08-29 14:09 | P.PN ---
Subjective Progress Note Date: 08/29/19 Principal diagnosis: stage 1A left breast cancer surveillance Stage IA, pT1 cN0 M0 ER/[place] positive HER-2/doris negative grade 1 Anali is a 52-year-old white female who is status post left breast lumpectomy with sentinel node biopsy on . 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 This was a grade 1. Margins were negative. One sentinel node was sampled which was negative. She received total breast radiation followed by a boost between 06/27/2017 and 07/24/2017. She tolerated the treatment with only mild dermatitis along the axillary inframammary fold. Anali had a bilateral mammogram performed on 01-28-19. The breast tissue was noted to be heterogeneously dense. BioSorb device was in place on the left with postsurgical and post-therapy changes. 6 month follow-up recommended to assess for evolving posttherapy changes. This was felt to be probably benign BIRADS 3. She had a repeat [place] breast [place] [id number]. This was felt to be probably benign BIRADS 3 and follow- up diagnostic mammogram of both breasts in 5 months was recommended, this was annular further right breast. Patient does not feel any changes for which she is concern in either breast. She states the Biozorb seems to be decreasing in size. The patient is presently on tamoxifen. She did not have chemotherapy. She has no complaints. Patient has no concerns at this time. Family History: no cancer other than patient Hormonal history: menarche: 12 , miscarrage: 1, breast fed: yes, first born at 33 menopause: Last period September 01 BCP: 5 years hormones: none Surgical history: 1. Left breast lumpectomy with sentinel node biopsy 2. Appendectomy 3. pyloric stenosis 4. Injury to left eye 5. C-sections times two Medical history: none Social History: smoke: none alcohol: occasional drugs: none Review of systems: HEENT: wears glasses Lungs: Negative Heart: Negative GI: Negative : Negative Musculoskeletal: Negative Neurologic: Negative Hematologic: Negative Skin: Negative ALLERGIES: Seasonal ALLERGIES Objective - Vital Signs Vital signs: Vital Signs Temp 98.7 F 08/29/19 13:31 Pulse 99 08/29/19 13:31 Resp 18 08/29/19 13:31 BP 120/71 08/29/19 13:31 Pulse Ox 97 08/29/19 13:31 Intake & Output 08/28/19 08/29/19 08/29/19 18:59 06:59 18:59 Weight 81.647 kg - Constitutional General appearance: Present: average body habitus - EENT Eyes: Present: EOMI ENT: Present: hearing grossly normal - Neck Neck: Present: normal ROM - Respiratory Respiratory: bilateral: CTA - Cardiovascular Rhythm: regular Heart sounds: normal: S1, S2 - Gastrointestinal General gastrointestinal: Present: normal bowel sounds, soft - Integumentary Integumentary: Present: normal turgor - Musculoskeletal Musculoskeletal: Present: gait normal - Psychiatric Psychiatric: Present: A&O x's 3, appropriate affect, intact judgment & insight - Additional findings Additional findings: breast exam: BRA 36C inspection: ptosis grade 2/3 right breast, left breast grade 1 Palpation: Right breast: Multi-positional exam no dominant masses or nodules of concern right breast is larger than left breast Right axilla: No adenopathy of concern Left breast: Multi-positional exam no dominant masses or nodules of concern, well-healed scar from prior surgery Left axilla: No adenopathy of concern Assessment and Plan Assessment: Impression: 1. No evidence of recurrent cancer left breast 2. Fibrocystic breast changes 3. Asymmetry of the breast 4. I have contacted Dr. Ramsey's office and they're going to renew her tamoxifen prescription Plan: 1. Repeat bilateral mammogram in January 2020 back on schedule, physician appointment at that time 2. Patient to call sooner if any questions or concerns 3. Patient will consider if she would like to have a symmetry procedure done on the right breast CC: DR. Christianson We have discussed right breast reduction mastopexy. The patient is going to think about it at this time. encounter 20 minutes, > 50% of time in planning and counselling
== END | disposition home or self-care (01) ==
LOC: WWCWWP 13:10
PROVIDERS: ATTEND Surgery
DX: Z53.9 Procedure and treatment not carried out, unspecified reason (principal)

== ENCOUNTER → 2020-01-24 | Outpatient (CLI) | payer BC ==
--- NOTE | 2020-01-24 14:42 | MM ---
Reason for exam: additional evaluation requested from prior study. Last mammogram was performed 5 months ago. History: Patient has history of breast cancer at age 51 and had first child at age 32. Radiation therapy, July 2017. Malignant MG pre op needle loc LT of the left breast, May 09, 2017. Lumpectomy of the left breast, May 09, 2017. Benign MR breast biopsy w/vad LEFT of the left breast, April 27, 2017. Malignant MG stereo VAD BX LT of the left breast, March 02, 2017. US discontinued breast core LT of the left breast, February 20, 2017. Benign US biopsy breast VAD LT of the left breast, January 26, 2017. Benign US biopsy breast add'l VAD LT of the left breast, January 26, 2017. Taking tamoxifen for 1 year. Physical Findings: Nurse did not find any significant physical abnormalities on exam. MG 3D Diag Mammo W/Cad ROB Bilateral CC and MLO view(s) were taken. Prior study comparison: August 23, 2019, left breast MG 3d diag mammo w/cad LT. January 28, 2019, bilateral MG 3d diag mammo w/cad ROB. The breast tissue is heterogeneously dense. This may lower the sensitivity of mammography. Previous mammotome biopsy in the left breast. Stable post surgical and post therapy change left breast. Areas of asymmetric density are unchanged. No significant new findings when compared with previous films. These results were verbally communicated with the patient and result sheet given to the patient on 01/24/20. ASSESSMENT: Benign, BI-RAD 2 RECOMMENDATION: Follow-up diagnostic mammogram of both breasts in 1 year.
== END | disposition home or self-care (01) ==
LOC: RADMAMWWP 14:02
PROVIDERS: ATTEND Surgery
DX: R92.8 Other abnormal and inconclusive findings on diagnostic imaging of breast (principal)
CPT/HCPCS: 77062; 77066

== ENCOUNTER → 2020-01-31 | Outpatient (CLI) | payer BC ==
[2020-01-31 15:55] VITALS: BP 116/55; PULSE 86; RESP 16; TEMP 98.4
--- NOTE | 2020-01-31 16:21 | P.PN ---
Subjective Progress Note Date: 01/31/20 Principal diagnosis: stage IA left breast cancer surveillance stage 1A left breast cancer surveillance Stage IA, pT1 cN0 M0 ER/[place] positive HER-2/doris negative grade 1 Anali is a 54-year-old white female who is status post left breast lumpectomy with sentinel node biopsy on . 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 This was a grade 1. Margins were negative. One sentinel node was sampled which was negative. She received total breast radiation followed by a boost between 06/27/2017 and 07/24/2017. She tolerated the treatment with only mild dermatitis along the axillary inframammary fold. Anali had a bilateral mammogram performed on 01-28-19. The breast tissue was noted to be heterogeneously dense. BioSorb device was in place on the left with postsurgical and post-therapy changes. 6 month follow-up recommended to assess for evolving posttherapy changes. This was felt to be probably benign BIRADS 3. She had a repeat left breast mammogram [place] [id number]. This was felt to be probably benign BIRADS 3 and follow- up diagnostic mammogram of both breasts in 5 months was recommended. Her most recent mammogram was on 01-24-20 which was bilateral and BIRAD 2. Patient does not feel any changes for which she is concern in either breast. She states the Biozorb is no longer palpable. The patient is presently on tamoxifen. She did not have chemotherapy. She has no complaints. Patient has no concerns at this time. Family History: no cancer other than patient Hormonal history: menarche: 12 , miscarrage: 1, breast fed: yes, first born at 33 menopause: Last period September 01 BCP: 5 years hormones: none Surgical history: 1. Left breast lumpectomy with sentinel node biopsy 2. Appendectomy 3. pyloric stenosis 4. Injury to left eye 5. C-sections times two Medical history: none Social History: smoke: none alcohol: occasional drugs: none Review of systems: HEENT: wears glasses Lungs: Negative Heart: Negative GI: Negative : Negative Musculoskeletal: Negative Neurologic: Negative Hematologic: Negative Skin: Negative ALLERGIES: Seasonal ALLERGIES Objective - Vital Signs Vital signs: Vital Signs Temp 98.4 F 01/31/20 15:53 Pulse 86 01/31/20 15:53 Resp 16 01/31/20 15:53 BP 116/55 01/31/20 15:53 Pulse Ox 98 01/31/20 15:53 Intake & Output 01/30/20 01/31/20 01/31/20 18:59 06:59 18:59 Weight 81.647 kg - Exam BMI 29.1 - Constitutional General appearance: Present: average body habitus - EENT Eyes: Present: EOMI ENT: Present: hearing grossly normal - Neck Neck: Present: normal ROM - Respiratory Respiratory: bilateral: CTA - Cardiovascular Rhythm: regular Heart sounds: normal: S1, S2 - Gastrointestinal General gastrointestinal: Present: normal bowel sounds, soft - Integumentary Integumentary: Present: normal turgor - Musculoskeletal Musculoskeletal: Present: gait normal - Psychiatric Psychiatric: Present: A&O x's 3, appropriate affect - Additional findings Additional findings: Breast exam: BRA 36C inspection: grade 2/3 ptosis, right breast larger than left breast palpation: right breast: Multiple positional exam fibrocystic changes no dominant masses or nodules of concern Right axilla: No adenopathy of concern Left breast: Well-healed scar from prior surgery small residual palpation of BioSorb felt to be present no dominant masses or nodules of concern, radiation changes Left axilla: No adenopathy of concern Assessment and Plan Assessment: Impression: 1. No evidence of recurrent left breast cancer 2. Patient on tamoxifen 3. Asymmetry of the breast Plan: 1. Close surveillance 2. Follow-up in 6 months 2. Follow-up sooner any questions or concerns 4. Bilateral mammogram in 1 year CC: Dr. Christianson encounter 15 minutes, > 50% of time in planning and counselling
== END | disposition home or self-care (01) ==
LOC: WWCWWP 15:48
PROVIDERS: ATTEND Surgery
DX: Z53.9 Procedure and treatment not carried out, unspecified reason (principal)

== ENCOUNTER → 2020-07-31 | Outpatient (CLI) | payer BC ==
[2020-07-31 15:47] VITALS: BP 108/69; PULSE 98; RESP 18; TEMP 98.3
--- NOTE | 2020-07-31 16:07 | P.PN ---
Subjective Progress Note Date: 07/31/20 Principal diagnosis: left breast stage IA invasive ductal cancer stage 1A left breast cancer surveillance Stage IA, T1N0 M0 ER/SD positive HER-2/doris negative grade 1 Anali is a 54-year-old white female who is status post left breast lumpectomy with sentinel node biopsy on . 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 This was a grade 1. Margins were negative. One sentinel node was sampled which was negative. She received total breast radiation followed by a boost between 06/27/2017 and 07/24/2017. She tolerated the treatment with only mild dermatitis along the axillary inframammary fold. She is on Arimidex. Anali had a bilateral mammogram performed on 01-28-19. The breast tissue was noted to be heterogeneously dense. BioSorb device was in place on the left with postsurgical and post-therapy changes. 6 month follow-up recommended to assess for evolving posttherapy changes. This was felt to be probably benign BIRADS 3. She had a repeat left breast mammogram performed on . This was felt to be probably benign BIRADS 3 and follow-up diagnostic mammogram of both breasts in 5 months was recommended. Her most recent mammogram was on 01-24-20 which was bilateral and BIRAD 2. Patient does not feel any changes for which she is concern in either breast. She states the Biozorb is no longer palpable. The patient is presently on Arimidex. She did not have chemotherapy. She has no complaints. Patient has no concerns at this time. She had a total abdominal hysterectomy performed in March 2020. She was on tamoxifen prior to this but that was then switched to anastrozole. This was done for pain, no cancer. Note reviewed from radiation oncology from 04-30-20. note from medical oncology reviewed from 04-08-20 Family History: no cancer other than patient Hormonal history: menarche: 12 , miscarrage: 1, breast fed: yes, first born at 33 menopause: Last period September 01 BCP: 5 years hormones: none Surgical history: 1. Left breast lumpectomy with sentinel node biopsy 2. Appendectomy 3. pyloric stenosis 4. Injury to left eye 5. C-sections times two Medical history: none Social History: smoke: none alcohol: occasional drugs: none Review of systems: HEENT: wears glasses Lungs: Negative Heart: Negative GI: Negative : Negative Musculoskeletal: Negative Neurologic: Negative Hematologic: Negative Skin: Negative ALLERGIES: Seasonal ALLERGIES Objective - Vital Signs Vital signs: Vital Signs Temp 98.3 F 07/31/20 15:45 Pulse 98 07/31/20 15:45 Resp 18 07/31/20 15:45 BP 108/69 07/31/20 15:45 Pulse Ox 97 07/31/20 15:45 Intake & Output 07/30/20 07/31/20 07/31/20 18:59 06:59 18:59 Weight 81.193 kg - Exam BMI 28.9 - Constitutional General appearance: Present: average body habitus - EENT Eyes: Present: EOMI ENT: Present: hearing grossly normal - Neck Neck: Present: normal ROM - Respiratory Respiratory: bilateral: CTA - Cardiovascular Heart sounds: normal: S1, S2 - Integumentary Integumentary: Present: normal turgor - Musculoskeletal Musculoskeletal: Present: gait normal - Psychiatric Psychiatric: Present: A&O x's 3, appropriate affect, intact judgment & insight - Additional findings Additional findings: Breast Exam: BRA: 36C inspection: right breast slightly larger than the left breast palpation: right breast: Multi-positional exam fibrocystic changes, no dominant masses or nodules of concern Right axilla: No adenopathy of concern Left breast: Multi-positional exam postop changes, no dominant masses or nodules of concern Left axilla: No adenopathy of concern There is asymmetry between the nipple areolar location secondary to prior surgery for cancer as well as right breast being slightly larger than the left breast Assessment and Plan Assessment: Impression: 1. patient status post left breast lumpectomy and sentinel node biopsy for stage I a left breast invasive ductal carcinoma no evidence of recurrent cancer 2. Patient is on arimidex 3. Asymmetry of the breast Plan: 1. Right breast mastopexy 2. Continue her room and asked 3. Follow-up here in 6 months CC:
== END ==
LOC: WWCWWP 15:36
PROVIDERS: ATTEND Surgery
DX: N64.89 Other specified disorders of breast (principal); Z79.811 Long term (current) use of aromatase inhibitors; Z85.3 Personal history of malignant neoplasm of breast; Z98.890 Other specified postprocedural states

== ENCOUNTER → 2020-09-30 | Outpatient (CLI) | payer BC ==
--- NOTE | 2020-09-30 09:37 | BD ---
EXAMINATION TYPE: Axial Bone Density DATE OF EXAM: 09/30/2020 COMPARISON: NONE CLINICAL HISTORY: 55 YR OLD FEMALE.....ICD-10 CODE: Z79.890 POST MENOPAUSAL Height: 65.8 Weight: 172 FRAX RISK QUESTIONS: NOTHING TO NOTE HERE RISK FACTORS HISTORY OF: Diet low in dairy products/other sources of calcium: YES Postmenopausal woman: YES, AT AGE 54, HYST Hyperparathyroidism: NO Adrenal Insufficiency: NO MEDICATIONS: Additional Medications: ANASTROZOLE, HX OF RADIATION FOR BREAST CA, VIT D3 , Additional History: HX OF LT BREAST CANCER, EXAM MEASUREMENTS: Bone mineral densitometry was performed using the [employer] System. Bone mineral density as measured about the Lumbar spine is: ----- L1-L4(G/cm2): 1.127 T Score Values are as follows: ----- L1: -0.9 ----- L2: -0.8 ----- L3: 0.3 ----- L4: -0.5 ----- L1-L4: -0.4 Bone mineral density FIRST DEXA SCAN.......BASELINE STUDY Bone mineral density about the R hip (g/cm2): 1.010 Bone mineral density about the L hip (g/cm2): 1.054 T Score values are as follows: -----R Neck: -0.3 -----L Neck: -0.1 -----R Total: 0.0 -----L Total: 0.4 Bone mineral density BASELINE STUDY FRAX%s: THERE IS A 5.2% CHANCE FOR A MAJOR OSTEOPOROTIC FX AND A 0.1% FOR HIP.....PROBABILITY FOR FX IN 10 YRS TIME IMPRESSION: Normal bone mineral density. NOTE: T-SCORE=SD OF THE YOUNG ADULT MEAN.
== END | disposition home or self-care (01) ==
LOC: RADBDWWP 07:52
PROVIDERS: ATTEND Internal Medicine Hematology & Oncology
DX: Z79.890 Hormone replacement therapy (principal)
CPT/HCPCS: 77080

== ENCOUNTER → 2021-01-25 | Outpatient (CLI) | payer BC ==
--- NOTE | 2021-01-26 11:03 | MM ---
Reason for exam: follow-up at short interval from prior study. Last mammogram was performed 1 year ago. History: Patient is postmenopausal, has history of breast cancer at age 51, and had first child at age 32. Radiation therapy, July 2017. Malignant MG pre op needle loc LT of the left breast, May 09, 2017. Lumpectomy of the left breast, May 09, 2017. Benign MR breast biopsy w/vad LEFT of the left breast, April 27, 2017. Malignant MG stereo VAD BX LT of the left breast, March 02, 2017. US discontinued breast core LT of the left breast, February 20, 2017. Benign US biopsy breast VAD LT of the left breast, January 26, 2017. Benign US biopsy breast add'l VAD LT of the left breast, January 26, 2017. Taking tamoxifen for 1 year. Physical Findings: Nurse did not find any significant physical abnormalities on exam. MG 3D Diag Mammo W/Cad ROB Bilateral CC, MLO, ML, and spot compression CC view(s) were taken. Prior study comparison: January 24, 2020, bilateral MG 3d diag mammo w/cad ROB. August 23, 2019, left breast MG 3d diag mammo w/cad LT. January 28, 2019, bilateral MG 3d diag mammo w/cad ROB. January 22, 2018, bilateral MG 3d diag mammo w/cad ROB. The breast tissue is heterogeneously dense. This may lower the sensitivity of mammography. Previous mammotome biopsy in the left breast. Central posterior left biozorb with overlapping palpable marker. Asymmetric density just medial to the biozorb. This disperses on additional views. No significant new findings when compared with previous films. These results were verbally communicated with the patient and result sheet given to the patient on 01/25/21. ASSESSMENT: Benign, BI-RAD 2 RECOMMENDATION: Follow-up diagnostic mammogram of both breasts in 1 year.
== END | disposition home or self-care (01) ==
LOC: RADMAMWWP 14:08
PROVIDERS: ATTEND Surgery
DX: N64.89 Other specified disorders of breast (principal); Z85.3 Personal history of malignant neoplasm of breast; Z78.0 Asymptomatic menopausal state
CPT/HCPCS: 77062; 77066

== ENCOUNTER → 2021-01-28 | Outpatient (CLI) | payer BC ==
[2021-01-28 16:05] VITALS: BP 107/70; PULSE 89; RESP 16; TEMP 98.2
--- NOTE | 2021-01-28 16:24 | P.PN ---
Subjective Progress Note Date: 01/28/21 Principal diagnosis: Asymmetry of the nipple areolar complex secondary to left breast invasive ductal carcinoma treatment left breast stage IA invasive ductal cancer stage 1A left breast cancer surveillance Stage IA, T1N0 M0 ER/[place] positive HER-2/doris negative grade 1 Anali is a 54-year-old white female who is status post left breast lumpectomy with sentinel node biopsy on . 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 This was a grade 1. Margins were negative. One sentinel node was sampled which was negative. She received total breast radiation followed by a boost between 06/27/2017 and 07/24/2017. She tolerated the treatment with only mild dermatitis along the axillary inframammary fold. She is on Arimidex. She had a bilateral mammogram on [id number] which was benign BIRADS 2. She is not complaining of any lumps masses or nodules of concern in either breast. She has asymmetry of the nipple aerolar complex related to the surgery for breast cancer. She had a total abdominal hysterectomy performed in March 2020. She was on tamoxifen prior to this but that was then switched to anastrozole. This was done for pain, no cancer. Note reviewed from radiation oncology from 04-30-20. note from medical oncology reviewed from 04-08-20 Family History: no cancer other than patient Hormonal history: menarche: 12 , miscarrage: 1, breast fed: yes, first born at 33 menopause: Last period September 01 BCP: 5 years hormones: none Surgical history: 1. Left breast lumpectomy with sentinel node biopsy 2. Appendectomy 3. pyloric stenosis 4. Injury to left eye 5. C-sections times two 6. hysterectomy for pain Medical history: none Social History: smoke: none alcohol: occasional drugs: none Review of systems: HEENT: wears glasses Lungs: Negative Heart: Negative GI: Negative : Negative Musculoskeletal: Negative Neurologic: Negative Hematologic: Negative Skin: Negative ALLERGIES: Seasonal ALLERGIES Objective - Vital Signs Vital signs: Vital Signs Temp 98.2 F 01/28/21 15:59 Pulse 89 01/28/21 15:59 Resp 16 01/28/21 15:59 BP 107/70 01/28/21 15:59 Pulse Ox 98 01/28/21 15:59 Intake & Output 01/27/21 01/28/21 01/28/21 18:59 06:59 18:59 Weight 81.647 kg - Exam BMI 29.1 - Constitutional General appearance: Present: cooperative - EENT Eyes: Present: EOMI ENT: Present: hearing grossly normal - Respiratory Respiratory: bilateral: CTA - Cardiovascular Rhythm: regular Heart sounds: normal: S1, S2 - Gastrointestinal General gastrointestinal: Present: soft - Integumentary Integumentary: Present: normal turgor - Musculoskeletal Musculoskeletal: Present: gait normal - Psychiatric Psychiatric: Present: A&O x's 3, appropriate affect, intact judgment & insight - Additional findings Additional findings: Breast Exam: BRA: 36C Inspection: Right nipple areolar complex approximately 2 cm lower than left nipple areolar complex Palpation: Right breast: Multi-positional exam fibrocystic breast changes no dominant masses or nodules of concern Right axilla: No adenopathy of concern Left breast: Multi-positional exam fibrocystic changes, postop and post radiation changes asymmetry of nipple areolar location Left axilla: No adenopathy of concern cyst slightly larger than left breast Assessment and Plan Assessment: Impression: 1. Patient status post left breast lumpectomy and sentinel node biopsy for stage I a left breast invasive ductal carcinoma/no evidence of recurrent cancer 2. Patient remains on anastrozole 3. Asymmetry of the nipple areolar complex locations 4. bilateral mammogram on 01-25-21 benign BIRAD 2 Plan: 1. Right breast mastopexy 2. Bilateral mammogram in 1 year 3. Continue anastrozole Risk and benefits of the procedure include but are not limited to bleeding, infection, reaction to the anesthetic. The patient understands that they will not be completely symmetric. The closer than they are at this time. She wishes to proceed. CC: Dr. Christianson
== END ==
LOC: WWCWWP 15:38
PROVIDERS: ATTEND Surgery
DX: N64.89 Other specified disorders of breast (principal); Z79.811 Long term (current) use of aromatase inhibitors; Z98.890 Other specified postprocedural states; Z85.3 Personal history of malignant neoplasm of breast

== ENCOUNTER → 2022-02-04 | Outpatient (CLI) | payer BC ==
--- NOTE | 2022-02-04 09:08 | MM ---
Reason for Exam: Hx of breast cancer, conservation therapy. Last screening mammogram was performed 12 month(s) ago. Patient History: Menarche at age 14. First Full-Term at age 32. Late child-bearing (after 30). Left ovary removed at age 54. Right ovary removed at age 54. Hysterectomy at age 54. Postmenopausal. Breast cancer, left, age 51. Currently using Tamoxifen, beginning at age 52 for 1 year. 05/09/2017, Lumpectomy on the Left side. 05/09/2017, Malignant Core Biopsy on the left side. 04/27/2017, Benign Core Biopsy on the left side. 03/02/2017, Malignant Core Biopsy on the left side. 01/26/2017, Benign Core Biopsy on the left side. 01/26/2017, Benign Core Biopsy on the left side. 07/2017, Radiation Therapy. 02/20/2017, US discontinued breast core LT on the left side. Tissue Density: The breast tissue is heterogeneously dense. This may lower the sensitivity of mammography. Findings: Analyzed By CAD. Postlumpectomy changes within the left breast with multiple clips. No new suspicious masses or calcific lesions identified in either breast. Overall Assessment: Benign, BI-RAD 2 Management: Screening Mammogram of both breasts in 1 year. A clinical breast exam by your physician is recommended on an annual basis and results should be correlated with mammographic findings. This exam should not preclude additional follow-up of suspicious palpable abnormalities. Results were given to the patient verbally at the time of exam. Electronically signed and approved by: Moisés Malone DO
== END | disposition home or self-care (01) ==
LOC: RADMAMWWP 08:00
PROVIDERS: ATTEND Internal Medicine Hematology & Oncology
DX: Z85.3 Personal history of malignant neoplasm of breast (principal); Z78.0 Asymptomatic menopausal state; Z90.721 Acquired absence of ovaries, unilateral
CPT/HCPCS: 77062; 77066

== ENCOUNTER → 2023-02-06 | Outpatient (CLI) | payer BC ==
--- NOTE | 2023-02-07 12:27 | MM ---
Reason for Exam: Screening (asymptomatic). Last screening mammogram was performed 12 month(s) ago. Patient History: Menarche at age 14. First Full-Term at age 32. Late child-bearing (after 30). Left ovary removed at age 54. Right ovary removed at age 54. Hysterectomy at age 54. Postmenopausal. Breast cancer, left, age 51. Previous chemotherapy at age 51. Currently using Tamoxifen, beginning at age 52 for 1 year. 05/09/2017, Lumpectomy on the Left side. 05/09/2017, Malignant Core Biopsy on the left side. 04/27/2017, Benign Core Biopsy on the left side. 03/02/2017, Malignant Core Biopsy on the left side. 01/26/2017, Benign Core Biopsy on the left side. 01/26/2017, Benign Core Biopsy on the left side. 07/2017, Radiation Therapy. 02/20/2017, US discontinued breast core LT on the left side. Prior Study Comparison: 01/24/2020 Bilateral Diagnostic Mammogram, [facility]. 01/25/2021 Bilateral Diagnostic Mammogram, [facility]. 02/04/2022 Bilateral MG 3D diag mammo w/cad ROB, [facility]. Tissue Density: The breast tissue is heterogeneously dense. This may lower the sensitivity of mammography. Findings: Analyzed By CAD. There is no suspicious group of microcalcifications or new suspicious mass in either breast. Overall Assessment: Benign, BI-RAD 2 Management: Screening Mammogram of both breasts in 1 year. . Patient should continue monthly self-breast exams. A clinical breast exam by your physician is recommended on an annual basis. This exam should not preclude additional follow-up of suspicious palpable abnormalities. Note on Aline scores and lifetime risk: 1. A Aline score greater than 3% is considered moderate risk. If this is the case, consider specialist referral to assess eligibility for a risk reducing agent. 2. If overall lifetime risk for the development of breast cancer is 20% or higher, the patient may qualify for future screening with alternating mammogram and breast MRI. Electronically signed and approved by: Mario Whitt M.D. Radiologis
== END | disposition home or self-care (01) ==
LOC: RADMAMWWP 11:06
PROVIDERS: ATTEND Internal Medicine Hematology & Oncology
DX: Z12.31 Encounter for screening mammogram for malignant neoplasm of breast (principal); Z78.0 Asymptomatic menopausal state; Z85.3 Personal history of malignant neoplasm of breast
CPT/HCPCS: 77063; 77067

== ENCOUNTER → 2024-02-13 | Outpatient (CLI) | payer BC ==
--- NOTE | 2024-02-14 17:19 | MM ---
Reason for Exam: Screening (asymptomatic). Last mammogram was performed 1 year(s) and 1 month(s) ago. Patient History: Menarche at age 14. First Full-Term at age 32. Late child-bearing (after 30). Left ovary removed at age 54. Right ovary removed at age 54. Hysterectomy at age 54. Postmenopausal. Breast cancer, left, age 51. Previous chemotherapy at age 51. Currently using Tamoxifen, beginning at age 52 for 1 year. 05/09/2017, Lumpectomy on the Left side. 05/09/2017, Malignant Core Biopsy on the left side. 04/27/2017, Benign Core Biopsy on the left side. 03/02/2017, Malignant Core Biopsy on the left side. 01/26/2017, Benign Core Biopsy on the left side. 01/26/2017, Benign Core Biopsy on the left side. 07/2017, Radiation Therapy. 02/20/2017, US discontinued breast core LT on the left side. Prior Study Comparison: 01/25/2021 Bilateral Diagnostic Mammogram, [facility]. 02/04/2022 Bilateral MG 3D diag mammo w/cad ROB, [facility]. 02/06/2023 Bilateral MG 3D screening mammo w/cad, [facility]. Tissue Density: The breasts are heterogeneously dense, which may obscure small masses. Findings: Analyzed By CAD. Postsurgical and posttreatment changes left breast with underlying Biozorb device. Microclip left breast from prior biopsy. Bilateral areas of asymmetric density are unchanged. There is no suspicious group of microcalcifications or new suspicious mass in either breast. Overall Assessment: Benign, BI-RAD 2 Management: Screening Mammogram of both breasts in 1 year. Patient should continue monthly self-breast exams. A clinical breast exam by your physician is recommended on an annual basis. This exam should not preclude additional follow-up of suspicious palpable abnormalities. [facility], , 02/14/2024 5:16 PM. Electronically signed and approved by: Sonali Nascimento M.D. Radiologist
== END | disposition home or self-care (01) ==
LOC: RADMAMWWP 11:45
PROVIDERS: ATTEND Internal Medicine Hematology & Oncology
DX: Z12.31 Encounter for screening mammogram for malignant neoplasm of breast (principal); C50.212 Malignant neoplasm of upper-inner quadrant of left female breast; M85.9 Disorder of bone density and structure, unspecified; Z71.3 Dietary counseling and surveillance; Z78.0 Asymptomatic menopausal state; Z90.721 Acquired absence of ovaries, unilateral; R92.333 Mammographic heterogeneous density, bilateral breasts
CPT/HCPCS: 77063; 77067